=== PATIENT | female | born 1955 | race Caucasian/White ===

== ENCOUNTER 2016-11-02 11:55 | Emergency (ER) | payer BC ==
[2016-11-02 12:14] VITALS: BP 134/60
--- NOTE | 2016-11-02 13:27 | UC ---
Throat Pain/Nasal Nahid HPI - HPI Summary HPI Summary: 61 o female with sinus pressure and pain as well as post nasal drip x almost 2 weeks today left greater than right otalgia left upper gums tender - History of Current Complaint Chief Complaint: UCRespiratory Stated Complaint: SINUSES,EARS,SETH Time Seen by Provider: 11/02/16 13:12 Hx Obtained From: Patient Hx Last Menstrual Period: 07/2004 Onset/Duration: Gradual Onset, Lasting Weeks Severity: Moderate Pain Intensity: 6 Pain Scale Used: 0-10 Numeric Cough: None Associated Signs & Symptoms: Positive: Sinus Discomfort, Nasal Discharge - Allergies/Home Medications Allergies/Adverse Reactions: Allergies Allergy/AdvReac Type Severity Reaction Status Date / Time Penicillins Allergy Intermediate Difficulty Verified 11/02/16 12:04 Breathing Sulfa Drugs Allergy Intermediate Rash Verified 11/02/16 12:04 Iodinated Diagnostic Agents Allergy Swelling Verified 11/02/16 12:04 Of Face,Lips,& Throat Home Medications: Home Medications Xrzbfeq-Ateqktgodeprv-Tbxvnmlh [Excedrin Extra Strength] 2 tab PO TID PRN [History Confirmed 11/02/16] Insulin GLARGINE(*) [Lantus(*)] 50 units SUBCUT BID 11/02/16 [History Confirmed 11/02/16] Naproxen Sodium [Naproxen Sodium 220 mg] 220 mg PO QAM 11/02/16 [History Confirmed 11/02/16] PMH/Surg Hx/FS Hx/Imm Hx Previously Healthy: No - djd Endocrine History: Diabetes - Surgical History Surgical History: Yes Surgery Procedure, Year, and Place: Pin in right knee/removed 1972. D&C 1977 - Family History Known Family History: Positive: Hypertension - Social History Alcohol Use: Rare Substance Use Type: None Smoking Status (MU): Never Smoked Tobacco Have You Smoked in the Last Year: No Review of Systems Constitutional: Negative Skin: Negative Eyes: Negative ENT: Ear Ache, Nasal Discharge, Sinus Congestion, Sinus Pain/Tenderness Respiratory: Negative Cardiovascular: Negative Gastrointestinal: Negative Genitourinary: Negative Motor: Negative Neurovascular: Negative Musculoskeletal: Negative Neurological: Negative Psychological: Negative All Other Systems Reviewed And Are Negative: Yes Physical Exam Triage Information Reviewed: Yes Appearance: Well-Appearing, No Pain Distress, Well-Nourished Vital Signs: Initial Vital Signs Temp 97.6 F 11/02/16 12:01 Pulse 65 06/29/17 12:01 Resp 18 11/02/16 12:01 BP 134/60 11/02/16 12:01 Pulse Ox 99 11/02/16 12:01 Vital Signs Reviewed: Yes Eyes: Positive: Conjunctiva Clear ENT: Positive: Hearing grossly normal, Nasal congestion, Nasal drainage, TMs normal, Other: - tender L>R max sinuses. Negative: Tonsillar swelling, Tonsillar exudate Dental: Positive: Other: - edentulous Neck: Positive: Supple, Nontender Respiratory: Positive: Lungs clear, Normal breath sounds, No respiratory distress, No accessory muscle use Cardiovascular: Positive: RRR, No Murmur Neurological: Positive: Alert Psychological Exam: Normal Skin Exam: Normal Throat Pain/Nasal Course/Dx - Course Course Of Treatment: rash with PCN. has taken keflex - Differential Dx/Diagnosis Provider Diagnoses: acute sinusitis Discharge - Discharge Plan Condition: Stable Disposition: HOME Prescriptions: Cefuroxime Axetil [Ceftin 250 MG] 250 mg PO BID #20 tab Fluticasone NASAL SPRAY 50MCG* [Flonase NASAL SPRAY 50MCG*] 2 spray BOTH NARES DAILY #1 btl Patient Education Materials: Sinusitis (ED) Referrals: Say Burgos MD [Primary Care Provider] - 5 Days (if not better )
== END 2016-11-02 13:27 | disposition home or self-care (01) ==
LOC: UCCORT 11:55
DX: J01.90 Acute sinusitis, unspecified (principal); E11.9 Type 2 diabetes mellitus without complications; Z79.4 Long term (current) use of insulin
CPT/HCPCS: 99212; G0463

== ENCOUNTER 2017-09-29 08:18 | Emergency (ER) | payer MEDICARE ==
[2017-09-29 08:37] VITALS: BP 126/78
--- NOTE | 2017-09-29 09:21 | UC ---
Respiratory Complaint HPI - HPI Summary HPI Summary: Patient after she gets morning 5 days of worsening sinus pain and pressure. Patient has dental pain worse on the right than on the left from her sinuses patient has not had any fevers up at checkers been running in the 140s she's had thick green and bloody sputum from her nose. Patient has begun to try her Flonase didn't notice much relief initially tied up or couple days. Has been using Excedrin for pain relief has not tried any decongestant or antihistamine - History of Current Complaint Chief Complaint: UCGeneralIllness Stated Complaint: UPPER RESP COMPLAINT, EAR(S), SORE THROAT Time Seen by Provider: 09/29/17 09:14 Hx Obtained From: Patient Hx Last Menstrual Period: 07/2004 ?: No Onset/Duration: Sudden Onset, Lasting Days - 5, Still Present Timing: Constant Pain Intensity: 8 Pain Scale Used: 0-10 Numeric Character: Cough: Nonproductive Aggravating Factors: Nothing Alleviating Factors: Nothing Associated Signs And Symptoms: Positive: Nasal Congestion, Sinus Discomfort - Allergies/Home Medications Allergies/Adverse Reactions: Allergies Allergy/AdvReac Type Severity Reaction Status Date / Time Iodinated Contrast- Oral and Allergy Swelling Verified 09/29/17 08:30 IV Dye Of Face,Lips,& Throat levofloxacin [From Levaquin] Allergy Hallucinati Verified 09/29/17 08:35 ons Penicillins Allergy Difficulty Verified 09/29/17 08:30 Breathing Sulfa (Sulfonamide Allergy Rash Verified 09/29/17 08:30 Antibiotics) clarithromycin [From Biaxin] AdvReac GI Upset Verified 09/29/17 08:35 Home Medications: Home Medications Fluticasone NASAL SPRAY 50MCG* [Flonase NASAL SPRAY 50MCG*] 2 spray BOTH NARES DAILY PRN 09/29/17 [History Confirmed 09/29/17] Insulin LISPRO* [HumaLOG*] 70 units SUBCUT QAM 09/29/17 [History Confirmed 09/29] Levothyroxine TAB* [Synthroid 75 MCG TAB*] 75 mcg PO DAILY 09/29/17 [History Confirmed 09/29/17] Spironolactone TAB* [Aldactone TAB 25 MG*] 50 mg PO DAILY 09/29/17 [History Confirmed 09/29/17] PMH/Surg Hx/FS Hx/Imm Hx Previously Healthy: No - gout Endocrine History: Diabetes, Hypothyroidism Cardiovascular History: Hypertension - Surgical History Surgical History: Yes Surgery Procedure, Year, and Place: D&C, 1977, [facility] [place]; Right Knee Pin and Traction s/p [facility], 1972, [place] - Family History Known Family History: Positive: Hypertension - Social History Occupation: Disabled Lives: With Family Alcohol Use: Rare Substance Use Type: None Smoking Status (MU): Never Smoked Tobacco Have You Smoked in the Last Year: No Review of Systems Constitutional: Negative Skin: Negative Eyes: Negative ENT: Dental Pain, Sore Throat, Ear Ache, Nasal Discharge, Sinus Congestion, Sinus Pain/Tenderness Respiratory: Cough Cardiovascular: Negative Gastrointestinal: Negative Genitourinary: Negative Motor: Negative Neurovascular: Negative Musculoskeletal: Negative Neurological: Headache Psychological: Negative Is Patient Immunocompromised?: No All Other Systems Reviewed And Are Negative: Yes Physical Exam Triage Information Reviewed: Yes Appearance: Ill-Appearing - mild, Pain Distress - mild, Obese Vital Signs: Initial Vital Signs Temp 98.4 F 09/29/17 08:28 Pulse 70 09/29/17 08:28 Resp 14 09/29/17 08:28 BP 126/78 09/29/17 08:28 Pulse Ox 100 09/29/17 08:28 Vital Signs Reviewed: Yes Eye Exam: Normal Eyes: Positive: Conjunctiva Clear ENT Exam: Normal ENT: Positive: Normal ENT inspection, Hearing grossly normal, Pharynx normal, Nasal congestion, Nasal drainage, TMs normal, Sinus tenderness, Uvula midline. Negative: Tonsillar swelling, Trismus, Muffled voice, Hoarse voice, Dental tenderness Dental Exam: Normal Neck exam: Normal Neck: Positive: Supple, Nontender, No Lymphadenopathy Respiratory Exam: Normal Respiratory: Positive: Chest non-tender, Lungs clear, Normal breath sounds, No respiratory distress, No accessory muscle use Cardiovascular Exam: Normal Cardiovascular: Positive: RRR, No Murmur, Pulses Normal, Brisk Capillary Refill Musculoskeletal Exam: Normal Musculoskeletal: Positive: Strength Intact, ROM Intact, No Edema Neurological Exam: Normal Neurological: Positive: Alert, Muscle Tone Normal Psychological Exam: Normal Skin Exam: Normal UC Diagnostic Evaluation - Laboratory O2 Sat by Pulse Oximetry: 100 Respiratory Course/Dx - Course Course Of Treatment: zithromax, flonase, antihistamine/decongestant, increase fluids, follow with pcp - Differential Dx/Diagnosis Provider Diagnoses: Acute rhinosinusitis Discharge - Sign-Out/Discharge Documenting (check all that apply): Discharge/Admit/Transfer - Discharge Plan Condition: Stable Disposition: HOME Prescriptions: Azithromycin TAB* [Zithromax TAB (Z-EMMANUEL) 250 mg #6 tabs] 2 tab PO .TODAY, THEN 1 DAILY #1 emmanuel Patient Education Materials: Cetirizine/Pseudoephedrine (By mouth), Sinusitis ( ED), How to Use Nasal [place] (ED) Referrals: Say Burgos MD [Primary Care Provider] - If Needed - Billing Disposition and Condition Condition: STABLE Disposition: HOME
== END 2017-09-29 09:31 | disposition home or self-care (01) ==
LOC: UCCORT 08:18
DX: J01.90 Acute sinusitis, unspecified (principal); Z88.0 Allergy status to penicillin; Z88.2 Allergy status to sulfonamides; Z88.1 Allergy status to other antibiotic agents; Z91.041 Radiographic dye allergy status; E11.9 Type 2 diabetes mellitus without complications; Z79.4 Long term (current) use of insulin; E03.9 Hypothyroidism, unspecified; I10 Essential (primary) hypertension
CPT/HCPCS: 99212; G0463